=== PATIENT | male | born 1985 | race African-American/Black ===

== ENCOUNTER 2018-08-28 16:26 | Emergency (ER) | payer SELFPAY ==
[~2018-08-28] VITALS: Ht 193 cm; Wt 84.4 kg
[2018-08-28] MEDS ORDERED: ACETAMINOPHEN ES 500 MG TABLET ONE (16:57)
[2018-08-28] MEDS ORDERED: IBUPROFEN 600 MG TABLET PO ONE ×2 (16:57→17:00)
[2018-08-28] MEDS ORDERED: ACETAMINOPHEN 325 MG TABLET PO ONE (17:00)
--- NOTE | 2018-08-28 17:01 | NUR ---
XRAY IN PROGRESS AT THE BEDSIDE.
--- NOTE | 2018-08-28 17:27 | NUR ---
STEF ANGELO IS AT THE BEDSIDE.
--- NOTE | 2018-08-28 18:40 | NUR ---
[employer] AND Crutches were dispensed. Pt instructed on proper use of crutches. Patient able to demonstrate correct use of crutches. Patient discharged to home in stable condition. Written and verbal after care instructions given. Patient verbalizes understanding of instruction AND RX. VSS. PT AMBULATED OUT WITH CRUTCHES.
--- NOTE | 2018-08-28 18:55 | NUR ---
PT AMBULATED OUT WITH CRUTCHES. PT TO TAKE THE BUS HOME. Patient discharged to home in stable condition. Written and verbal after care instructions given. Patient verbalizes understanding of instruction.
[2018-08-28 19:42] VITALS: BP 119/75
== END 2018-08-28 18:55 | disposition home or self-care (01) ==
LOC: ER 16:28
DX: S83.8X1A Sprain of other specified parts of right knee, initial encounter (principal); Z98.890 Other specified postprocedural states; V23.4XXA Motorcycle driver injured in collision with car, pick-up truck or van in traffic accident, initial encounter; Y93.I9 Activity, other involving external motion; Y92.413 State road as the place of occurrence of the external cause; Y99.8 Other external cause status
CPT/HCPCS: 73564-TC